=== PATIENT | male | born 2000 | race Asian ===

== ENCOUNTER 2024-06-17 21:14 | Inpatient (IN) ==
[2024-06-17 22:06] LABS: Appearance Urine Clear (Clear); Bacteria Urine Automated None Seen (None Seen); Bilirubin Urine Negative (Negative); Blood Urine Trace (Negative); Cast Urine Automated 0-2 /lpf (0-2); Color Urine Yellow; Epithelial Cell Urine Auto 0-2 /hpf (0-2); Glucose Urine UA Negative (Negative); Ketones Urine 1+ (Negative); Leukocyte Esterase Urine Negative (Negative); Nitrite Urine Negative (Negative); Protein Urine Trace (Negative); RBC Urine Automated 0-2 /hpf (0-2); Specific Gravity Urine 1.015 (1.000-1.030); Urobilinogen Urine Negative (Negative); WBC Urine Automated 0-5 /hpf (0-5); pH Urine 5.5 (4.5-7.5)
[2024-06-17 22:27] LABS: Basophils # (auto) 0.03 K/uL (0.00-0.20); Basophils % (auto) 0.2 %; Hematocrit (blood only) 39.5 % (42.0-52.0); Immature Granulocytes % (auto) 0.5 %; Lymphocytes # (auto) 1.38 K/uL (1.20-3.40); Lymphocytes % (auto) 7.5 %; Mean Corpuscular Hemoglobin 28.9 pg (25.0-34.0); Mean Corpuscular Hgb Conc 35.4 g/dL (32.0-36.0); Mean Corpuscular Volume 81.6 fL (80.0-100.0); Mean Platelet Volume 10.7 fL (9.4-12.4); Monocytes # (auto) 1.63 K/uL (0.11-0.59); Monocytes % (auto) 8.9 %; Neutrophils # (auto) 15.17 K/uL (1.40-6.50); Neutrophils % (auto) 82.9 %; Platelet Count 217 K/uL (130-400); RDW Coefficient of Variation 13.2 % (11.5-14.5); RDW Standard Deviation 39.1 fL (36.4-46.3); Red Blood Count 4.84 M/uL (4.70-6.10); White Blood Count 18.31 K/ul (4.8-10.8)
[2024-06-17 22:44] LABS: Albumin Globulin Ratio 1.6 (0.9-2); BUN Creatinine Ratio 11.6 (10-20); Bilirubin,Total 1.7 mg/dl (0.2-1.0); Calcium 9.7 mg/dl (8.6-10.3); Globulin 3.2 gm/dl (2.5-4.0); Total Protein 8.2 gm/dl (6.0-8.3)
[2024-06-17] MEDS: ONDANSETRON INJ 2 MG/ML 2 ML VIAL IV STA (22:45)
[2024-06-17] MEDS: ACETAMINOPHEN 1,000 MG/100 ML VIAL IV STA (22:45)
[2024-06-17] MEDS: KETOROLAC TROMETHAMINE 15 MG/ML VIAL IV ONE (22:45)
[2024-06-17] MEDS: SODIUM CHLORIDE 0.9% 1,000 ML IV ONE (22:46)
--- NOTE | 2024-06-17 22:48 | Emergency Department Note ---
Impression & Plan Appendicitis, Lower back pain, Leukocytosis ED Provider Note NAME: JEOVANY GILBERT AGE: 24 SEX: M : 2000 ARRIVES VIA: Walk-In INFORMANT: [Patient] ED PROVIDER(S): [Erik Gonzalez MD] CHIEF COMPLAINT: Abnormal laboratories HISTORY OF PRESENT ILLNESS: The patient is a 24-year-old male who states that he played squash 3 days ago and thought maybe he hurt his lower back. He was having a hard time sleeping because of the pain. In the last 24 hours, he has had increased pain, more so on the left, he vomited and even noticed some upper abdominal pain. The patient's upper abdominal pain has gone away but he still has some nausea and lower back pain. The patient went to [facility], they found some glucose and ketones in his urine and referred him to the ED. Patient believes he may have had a low-grade fever. No cough or respiratory complaints. He has no history of UTI, he has no history of diabetes. PMHx/PSHx/Social Hx: See Below PHYSICAL EXAM: GENERAL: Patient is in no acute distress. HEENT: No acute trauma, normocephalic atraumatic, mucous membranes moist, no nasal congestion. NECK: No stridor, no adenopathy, no meningismus, trachea is midline. LUNGS: Clear to auscultation bilaterally, no wheeze, no rhonchi, breath sounds equal. HEART: Without murmurs gallops or rubs, regular rate and rhythm. ABDOMEN: Soft, mildly tender in the lower abdomen bilaterally, no distention. No upper abdominal pain with palpation. EXTREMITIES: No cyanosis, full range of motion of all the joints without pain or difficulty. NEUROLOGIC: Oriented x 3, no acute motor or sensory deficits, no focal weakness. SKIN: No jaundice, no diaphoresis. DIFFERENTIAL DIAGNOSIS: Renal colic, pyelonephritis, diabetes, electrolyte imbalance, UTI, viral illness, musculoskeletal pain, among others. EMERGENCY DEPARTMENT PROCEDURES: MEDICAL DECISION MAKING: There is a moderate leukocytosis, this could be consistent with infection. There was a normal hemoglobin and platelet count. No renal failure or significant electrolyte abnormality. Bilirubin was somewhat elevated, the remaining liver enzymes were unremarkable. Urinalysis showed some ketones, no findings of infection. Chest x-ray did not show pneumonia or free air. Abdominal and pelvis CT shows appendicitis with a large appendicolith. No urinary obstruction. Patient received IV cefepime as antibiotic coverage. He was given 1 L of IV saline for hydration. He was given IV Zofran for nausea. He received IV Toradol for pain. He was given IV Tylenol for pain. Patient presents with primarily lower back pain. He had noted a fever and some vomiting. He did have some lower abdominal pain on exam but it was minimal. He was found to have appendicitis. I did speak with the patient and with case management. I did consult the on- call surgical team. Hospitalization is indicated Prior/Outside records/notes reviewed: None Imaging/x-ray results per my interpretation: Chest x-ray does not show free air or pneumonia. Chronic Medical/Social conditions affecting care: None Care/Management discussed with: General Surgery-Dr. Martha Yan. Level of care consideration(s): After review of the information above and other included data: --I believe the patient requires escalation of care to admission DISPOSITION: Admission Past Med/Surg History Problem List Encounter for pre-operative examination Leukocytosis (Acute) Lower back pain (Acute) Appendicitis (Acute) Medical History No significant medical problems Social History Smoking Status: Never smoker Hx Alcohol Use: No Hx Substance Use: No Preferred Language: [place] Citizen Communication Ability: Effective Spice Miller Required: No Beliefs That Will Affect Care: None Current Living Situation: Other Current Living Situation Comment: roommates x2 Feels Safe at Home: Yes Safety Concerns: Feels Safe At This Time Assistive Devices: None Allergies Allergies Allergy/AdvReac Type Severity Reaction Status Date / Time No Known Allergies Allergy Unverified 06/18/24 00:51 Home Meds Previous Rx's Medication Instructions Recorded amoxicillin 875 mg-potassium 1 tab PO Q12H 10 days #20 tabs 06/18/24 clavulanate 125 mg tablet oxycodone 5 mg tablet 5 - 10 mg (1 - 2 x 5 mg) PO 06/18/24 .[id number] PRN pain, for initial therapy, max 6 tabs per day #15 tabs Results & Data (ED) Vital Signs Vital Signs - 24 hr 06/17/24 21:21 06/17/24 21:53 06/17/24 23:39 Temperature 37.5 C Temperature Source Temporal Artery Scan Pulse Rate 112 H Pulse Rate [Finger] 89 Respiratory Rate 16 16 Respiratory Effort / Characteristics Non-Labored Non-Labored Respiratory Depth Normal Normal Blood Pressure 150/81 H Blood Pressure [Right Arm] 122/69 Blood Pressure Mean 104 Blood Pressure Mean [Right Arm] 86 Pulse Oximetry 99 100 Oxygen Delivery Method Room Air Room Air Sepsis Recent Fever Within 48 Hours No Sepsis New/Unexplained Change in Mental Status No Sepsis Action Taken by Nursing No Action Required Home Medications Current Medication List: was personally reviewed by me Laboratory Data Attestation: I reviewed the patient's lab results. 06/20/24 06:53 06/20/24 06:53 Lab Results 06/17/24 06/17/24 06/17/24 Range/Units 21:40 21:46 22:10 WBC 18.31 H (4.8-10.8) K/ul RBC 4.84 (4.70-6.10) M/uL Hgb 14.0 (14.0-18.0) g/dl Hct 39.5 L (42.0-52.0) % MCV 81.6 (80.0-100.0) fL MCH 28.9 (25.0-34.0) pg MCHC 35.4 (32.0-36.0) g/dL RDW Std Deviation 39.1 (36.4-46.3) fL RDW Coeff of Day 13.2 (11.5-14.5) % Plt Count 217 (130-400) K/uL MPV 10.7 (9.4-12.4) fL Immature Gran % (Auto) 0.5 % Neut % (Auto) 82.9 % Lymph % (Auto) 7.5 % [place] % (Auto) 8.9 % Eos % (Auto) 0.0 % Baso % (Auto) 0.2 % Neut # (Auto) 15.17 H (1.40-6.50) K/uL Lymph # (Auto) 1.38 (1.20-3.40) K/uL [place] # (Auto) 1.63 H (0.11-0.59) K/uL Eos # (Auto) 0.00 (0.00-0.50) K/uL Baso # (Auto) 0.03 (0.00-0.20) K/uL Immature Gran # (Auto) 0.10 (0.01-0.20) K/uL Sodium 135 L (136-145) mmol/L Potassium 4.0 (3.5-5.1) mmol/L Chloride 99 (98-107) mmol/L Carbon Dioxide 26 (21-32) mmol/L Anion Gap 10 (3-11) BUN 11 (6-23) mg/dl Creatinine 0.95 (0.6-1.4) mg/dl Est Cr Clr Drug Dosing 122.0 ml/min eGFR 116.06 BUN/Creatinine Ratio 11.6 (10-20) Glucose 123 H (70-99(Fasting)) mg/dl POC Glucose 129 H (70-99) mg/dl Calcium 9.7 (8.6-10.3) mg/dl Magnesium 1.7 (1.7-2.4) mg/dl Total Bilirubin 1.7 H (0.2-1.0) mg/dl AST 13 (13-39) U/L ALT 8 (7-52) U/L Alkaline Phosphatase 61 (34-104) U/L Total Protein 8.2 (6.0-8.3) gm/dl Albumin 5.0 (3.4-5.0) gm/dl Globulin 3.2 (2.5-4.0) gm/dl Albumin/Globulin Ratio 1.6 (0.9-2) Urine Color Yellow Urine Appearance Clear (Clear) Urine pH 5.5 (4.5-7.5) Ur Specific [place] 1.015 (1.000-1.030) Urine Protein Trace H (Negative) Urine Glucose (UA) Negative (Negative) Urine Ketones 1+ H (Negative) Urine Blood Trace H (Negative) Urine Nitrite Negative (Negative) Urine Bilirubin Negative (Negative) Urine Urobilinogen Negative (Negative) Ur Leukocyte Esterase Negative (Negative) Urine WBC (Auto) 0-5 (0-5) /hpf Urine RBC (Auto) 0-2 (0-2) /hpf U Hyaline Cast (Auto) 0-2 (0-2) /lpf U Epithel Cells (Auto) 0-2 (0-2) /hpf Urine Bacteria (Auto) None Seen (None Seen) Administered Medications Piperacillin Sod/Tazobactam Sod (Zosyn) 4.5 gm in 100 mls @ 25 mls/hr IV Q8H [facility]; Protocol Stop: 06/28/24 06:01 Last Admin: 06/20/24 14:33 Dose: 25 mls/hr Documented By: Infusion: 06/20/24 09:28 Dose: Infused Documented By: [facility] Admin: 06/20/24 05:28 Dose: 25 mls/hr Documented By: Infusion: 06/20/24 03:47 Dose: Infused Documented By: Admin: 06/19/24 23:04 Dose: 25 mls/hr Documented By: Infusion: 06/19/24 19:04 Dose: Infused Documented By: Admin: 06/19/24 14:59 Dose: 25 mls/hr Documented By: [facility] Infusion: 06/19/24 10:08 Dose: Infused Documented By: [facility] Admin: 06/19/24 06:08 Dose: 25 mls/hr Documented By: Infusion: 06/19/24 04:25 Dose: Infused Documented By: Admin: 06/18/24 22:35 Dose: 25 mls/hr Documented By: Infusion: 06/18/24 19:11 Dose: Infused Documented By: Admin: 06/18/24 14:56 Dose: 25 mls/hr Documented By: [facility] Infusion: 06/18/24 11:10 Dose: Infused Documented By: [facility] Admin: 06/18/24 06:53 Dose: 25 mls/hr Documented By: [facility] Acetaminophen (Ofirmev) 1,000 mg in 100 mls @ 400 mls/hr IV Q8H [facility] Stop: 06/21/24 07:29 Last Infusion: 06/20/24 15:52 Dose: Infused Documented By: [facility] Admin: 06/20/24 15:37 Dose: 400 mls/hr Documented By: Infusion: 06/20/24 08:21 Dose: Infused Documented By: [facility] Admin: 06/20/24 08:06 Dose: 400 mls/hr Documented By: [facility] Infusion: 06/19/24 23:21 Dose: Infused Documented By: Admin: 06/19/24 23:05 Dose: 400 mls/hr Documented By: Infusion: 06/19/24 17:21 Dose: Infused Documented By: Admin: 06/19/24 16:39 Dose: 400 mls/hr Documented By: Infusion: 06/19/24 10:05 Dose: Infused Documented By: Admin: 06/19/24 08:44 Dose: 400 mls/hr Documented By: Infusion: 06/18/24 22:55 Dose: Infused Documented By: Admin: 06/18/24 22:35 Dose: 400 mls/hr Documented By: Infusion: 06/18/24 16:38 Dose: Infused Documented By: Admin: 06/18/24 16:15 Dose: 400 mls/hr Documented By: Infusion: 06/18/24 08:24 Dose: Infused Documented By: Admin: 06/18/24 07:39 Dose: 400 mls/hr Documented By: JANUSZ Ondansetron HCl (Ondansetron Inj 2 Mg/Ml 2 Ml Vial) 4 mg IV Q6H PRN PRN Reason: Nausea And Vomiting Stop: 07/18/24 00:44 Last Admin: 06/19/24 23:22 Dose: 4 mg Documented By: Admin: 06/19/24 13:53 Dose: 4 mg Documented By: Admin: 06/18/24 13:52 Dose: 4 mg Documented By: JANUSZ Discontinued Medications Bupivacaine HCl (Bupivacaine 0.5 % 5 Mg/1 Ml Mpf 30ml Vial) Confirm Administered Dose 30 ml .ROUTE .STK-MED ONE Stop: 06/18/24 02:45 Last Admin: 06/18/24 04:46 Dose: 30 ml Documented By: [id number] Sodium Chloride (Nss) 1,000 mls @ 999 mls/hr IV .Q1H1M ONE Stop: 06/17/24 23:40 Last Infusion: 06/18/24 00:13 Dose: Infused Documented By: Admin: 06/17/24 22:46 Dose: 999 mls/hr Documented By: MARY Acetaminophen (Ofirmev) 1,000 mg in 100 mls @ 400 mls/hr IV NOW STA Stop: 06/17/24 22:54 Last Infusion: 06/17/24 23:00 Dose: Infused Documented By: Admin: 06/17/24 22:45 Dose: 400 mls/hr Documented By: MARY Cefepime HCl (Maxipime 2000mg) 2,000 mg in 20 mls @ 5 mls/min IV NOW STA; Protocol Stop: 06/18/24 00:22 Last Admin: 06/18/24 00:30 Dose: 5 mls/min Documented By: MARY Piperacillin Sod/Tazobactam Sod (Zosyn) 4.5 gm in 100 mls @ 200 mls/hr IV NOW ONE; Protocol Stop: 06/18/24 01:13 Last Infusion: 06/18/24 01:49 Dose: Infused Documented By: Admin: 06/18/24 01:06 Dose: 200 mls/hr Documented By: MARY Sodium Chloride (Nss) 1,000 mls @ 125 mls/hr IV .Q8H [facility] Stop: 06/19/24 00:44 Last Infusion: 06/19/24 06:29 Dose: Infused Documented By: [facility] Admin: 06/18/24 22:35 Dose: 125 mls/hr Documented By: [facility] Infusion: 06/18/24 22:35 Dose: Infused Documented By: [facility] Infusion: 06/18/24 15:41 Dose: 125 mls/hr Documented By: [facility] Admin: 06/18/24 15:01 Dose: 100 mls/hr Documented By: [facility] Infusion: 06/18/24 11:07 Dose: Infused Documented By: [facility] Admin: 06/18/24 01:07 Dose: 100 mls/hr Documented By: MARY Sodium Chloride (Nss) 500 mls @ 999 mls/hr IV .Q31M [facility] Stop: 06/18/24 15:45 Last Infusion: 06/18/24 16:39 Dose: Infused Documented By: [facility] Admin: 06/18/24 15:41 Dose: 999 mls/hr Documented By: [facility] Sodium Chloride (Nss) 1,000 mls @ 125 mls/hr IV .Q8H [facility] Stop: 06/19/24 13:58 Last Infusion: 06/19/24 15:54 Dose: Infused Documented By: [facility] Admin: 06/19/24 06:09 Dose: 125 mls/hr Documented By: ILEANA Potassium Chloride/Dextrose/Sod Cl (D5w And 1/2nss + 20meq Kcl) 20 meq in 1,000 mls @ 125 mls/hr IV .Q8H [facility] Stop: 06/20/24 14:14 Last Infusion: 06/20/24 15:46 Dose: Infused Documented By: [facility] Admin: 06/20/24 06:36 Dose: 125 mls/hr Documented By: Infusion: 06/20/24 06:36 Dose: Infused Documented By: Admin: 06/19/24 23:04 Dose: 125 mls/hr Documented By: Infusion: 06/19/24 23:03 Dose: Infused Documented By: Admin: 06/19/24 14:56 Dose: 125 mls/hr Documented By: ALLEY Promethazine HCl (Phenergan) 12.5 mg in 50.5 mls @ 202 mls/hr IV NOW STA Stop: 06/20/24 05:19 Last Infusion: 06/20/24 06:06 Dose: Infused Documented By: Admin: 06/20/24 05:28 Dose: 202 mls/hr Documented By: ILEANA Ioversol (Optiray 320 100ml) 100 ml IV ONCE ONE Stop: 06/17/24 23:13 Last Admin: 06/17/24 23:12 Dose: 93 ml Documented By: [facility]AR[facility] Ketorolac Tromethamine (Ketorolac Tromethamine 15 Mg/Ml Vial) 10 mg IV NOW ONE Stop: 06/17/24 22:41 Last Admin: 06/17/24 22:45 Dose: 10 mg Documented By: MARY Miscellaneous Information (Patient's Allergy Info Needs Entered) 1 each N/A NOW STA Stop: 06/17/24 21:22 Last Admin: 06/18/24 00:54 Dose: Not Given Documented By: MARY Ondansetron HCl (Ondansetron Inj 2 Mg/Ml 2 Ml Vial) 4 mg IV NOW STA Stop: 06/17/24 22:41 Last Admin: 06/17/24 22:45 Dose: 4 mg Documented By: MARY Imaging Data Radiologist's Impression: Abdomen/Pelvis CT 06/17/24 22:40 CR Exam(s): CT ABDOMEN + PELVIS With Contrast IV Amt: 93 ml optiray 320 EXAM: CT Abdomen and Pelvis With Intravenous Contrast CLINICAL HISTORY: vomiting, low back pain. TECHNIQUE: Axial computed tomography images of the abdomen and pelvis with intravenous contrast. CTDI is 11.15 mGy and DLP is 535.01 mGy-cm. Automated exposure control was utilized for the study. A dose lowering technique was utilized adhering to the principles of ALARA. CONTRAST: Patient received 93 ml optiray 320 of IV contrast COMPARISON: No relevant prior studies available. FINDINGS: Lung bases: Unremarkable. No mass. No consolidation. ABDOMEN: Liver: Unremarkable. No mass. Gallbladder and bile ducts: Unremarkable. No calcified stones. No ductal dilation. Pancreas: Unremarkable. No mass. No ductal dilation. Spleen: Unremarkable. No splenomegaly. Adrenals: Unremarkable. No mass. Kidneys and ureters: Unremarkable. No solid mass. No hydronephrosis. Stomach and bowel: No bowel obstruction. Nonspecific fluid-filled small bowel loops in the pelvis. No dilation. Mild stool burden. No mucosal thickening. PELVIS: Appendix: 11 x 16 mm appendicolith noted at the ostium of the appendix. The appendix extends posterior from the cecum along the right lateral pelvic wall and is abnormally fluid dilated measuring 17 mm with diffuse wall thickening and periappendiceal fat stranding. Bladder: Unremarkable. No mass. Reproductive: Unremarkable as visualized. ABDOMEN and PELVIS: Intraperitoneal space: Trace free fluid in the pelvis. No loculation. No free air. Bones/joints: No acute fracture. No dislocation. Soft tissues: Unremarkable. Vasculature: Unremarkable. No abdominal aortic aneurysm. Lymph nodes: Unremarkable. No enlarged lymph nodes. IMPRESSION: 1. 11 x 16 mm appendicolith noted at the ostium of the appendix. The appendix extends posterior from the cecum along the right lateral pelvic wall and is abnormally fluid dilated measuring 17 mm with diffuse wall thickening and periappendiceal fat stranding. Findings are consistent with acute appendicitis. 2. Trace free fluid in the pelvis. No loculation. This is presumed reactive from the adjacent appendicitis. 3. No bowel obstruction. Nonspecific fluid-filled small bowel loops in the pelvis. No dilation. Reactive enteritis suspected. Communications: Call Doctor Appendicitis Electronically signed by: Bahman Braga MD 06/18/24 00:15 AM Chest X-Ray 06/17/24 22:40 Exam(s): XR CXR 1 VIEW EXAM: XR Chest, 1 View CLINICAL HISTORY: abd pain. TECHNIQUE: Frontal view of the chest. COMPARISON: No relevant prior studies available. FINDINGS: Lungs: No focal consolidation. The pulmonary vasculature demonstrates no significant radiographic abnormality. Pleural space: Unremarkable. No pneumothorax. No large pleural effusion. Heart: Unremarkable. No cardiomegaly. Mediastinum: No significant abnormality identified. The trachea is midline. Bones/joints: Unremarkable. No acute fracture. IMPRESSION: No focal consolidation or acute cardiopulmonary process identified. Electronically signed by: Bahman Braga MD 06/18/24 00:19 AM Discharge Plan Visit Data Chief Complaint: Abnormal Labs/Diagnostic Testing Stated Complaint: ABN LAB RESULT ED Provider: Erik Gonzalez Discharge Problem: Appendicitis, Lower back pain, Leukocytosis Patient Disposition: Admitted As Inpatient Condition: Fair Discharge Instructions Interventions: ED Discharge Assessment Last Done: 06/18/24 02:33 Discharge Problem: Appendicitis Qualifiers: Appendicitis type: acute appendicitis Acute appendicitis type: with localized peritonitis Appendicitis gangrene presence: with gangrene Appendicitis perforation presence: with perforation Appendicitis abscess presence: with abscess Qualified Code(s): K35.33 - Acute appendicitis with perforation, localized peritonitis, and gangrene, with abscess Lower back pain Qualifiers: Chronicity: acute Back pain laterality: midline Sciatica presence: without sciatica Qualified Code(s): M54.50 - Low back pain, unspecified Leukocytosis Qualifiers: Leukocytosis type: unspecified Qualified Code(s): D72.829 - Elevated white blood cell count, unspecified
[2024-06-17 23:04] LABS: Magnesium 1.7 mg/dl (1.7-2.4)
[2024-06-17] MEDS: OPTIRAY 320 100ml IV ONE (23:12)
--- NOTE | 2024-06-18 00:16 | CT Scan Report ---
Exam(s): CT ABDOMEN + PELVIS With Contrast IV Amt: 93 ml optiray 320 EXAM: CT Abdomen and Pelvis With Intravenous Contrast CLINICAL HISTORY: vomiting, low back pain. TECHNIQUE: Axial computed tomography images of the abdomen and pelvis with intravenous contrast. CTDI is 11.15 mGy and DLP is 535.01 mGy-cm. Automated exposure control was utilized for the study. A dose lowering technique was utilized adhering to the principles of ALARA. CONTRAST: Patient received 93 ml optiray 320 of IV contrast COMPARISON: No relevant prior studies available. FINDINGS: Lung bases: Unremarkable. No mass. No consolidation. ABDOMEN: Liver: Unremarkable. No mass. Gallbladder and bile ducts: Unremarkable. No calcified stones. No ductal dilation. Pancreas: Unremarkable. No mass. No ductal dilation. Spleen: Unremarkable. No splenomegaly. Adrenals: Unremarkable. No mass. Kidneys and ureters: Unremarkable. No solid mass. No hydronephrosis. Stomach and bowel: No bowel obstruction. Nonspecific fluid-filled small bowel loops in the pelvis. No dilation. Mild stool burden. No mucosal thickening. PELVIS: Appendix: 11 x 16 mm appendicolith noted at the ostium of the appendix. The appendix extends posterior from the cecum along the right lateral pelvic wall and is abnormally fluid dilated measuring 17 mm with diffuse wall thickening and periappendiceal fat stranding. Bladder: Unremarkable. No mass. Reproductive: Unremarkable as visualized. ABDOMEN and PELVIS: Intraperitoneal space: Trace free fluid in the pelvis. No loculation. No free air. Bones/joints: No acute fracture. No dislocation. Soft tissues: Unremarkable. Vasculature: Unremarkable. No abdominal aortic aneurysm. Lymph nodes: Unremarkable. No enlarged lymph nodes. IMPRESSION: 1. 11 x 16 mm appendicolith noted at the ostium of the appendix. The appendix extends posterior from the cecum along the right lateral pelvic wall and is abnormally fluid dilated measuring 17 mm with diffuse wall thickening and periappendiceal fat stranding. Findings are consistent with acute appendicitis. 2. Trace free fluid in the pelvis. No loculation. This is presumed reactive from the adjacent appendicitis. 3. No bowel obstruction. Nonspecific fluid-filled small bowel loops in the pelvis. No dilation. Reactive enteritis suspected. Communications: Call Doctor Appendicitis Electronically signed by: Bahman Braga MD 06/18/24 00:15 AM
--- NOTE | 2024-06-18 00:20 | XRay Report ---
Exam(s): XR CXR 1 VIEW EXAM: XR Chest, 1 View CLINICAL HISTORY: abd pain. TECHNIQUE: Frontal view of the chest. COMPARISON: No relevant prior studies available. FINDINGS: Lungs: No focal consolidation. The pulmonary vasculature demonstrates no significant radiographic abnormality. Pleural space: Unremarkable. No pneumothorax. No large pleural effusion. Heart: Unremarkable. No cardiomegaly. Mediastinum: No significant abnormality identified. The trachea is midline. Bones/joints: Unremarkable. No acute fracture. IMPRESSION: No focal consolidation or acute cardiopulmonary process identified. Electronically signed by: Bahman Braga MD 06/18/24 00:19 AM
[2024-06-18] MEDS: CEFEPIME 2000MG 2,000 MG/20 ML SYR IV STA (00:30)
--- NOTE | 2024-06-18 00:44 | History & Physical Report ---
<Statement entered by Maurizio De Santiago DO - 06/18/24 03:10> I have seen and examined this patient. He has become tachycardic and febrile and will be taken to the OR emergently for laparoscopic exploration and appendectomy. The details of the procedure have been explained to him and consent has been obtained. Date of Service June 18, 2024 Assessment & Plan (1) Appendicitis: Plan: Into the patient's clinical presentation and findings on imaging and labs he will be admitted to the surgical service proceeding as follows: We will keep the patient n.p.o. We will hydrate him with IV fluids Patient has received antibiotics form of cefepime but I am going to switch this to Zosyn as we would like to add some anaerobic coverage will continue this antibiotic perioperatively Will provide analgesics Will provide antiemetics We will tentatively plan on having the patient undergo an appendectomy with Dr. Harris the morning of 06/18/2024 At the present time the patient is normotensive without tachycardia or fever and he is nontoxic-appearing. We use SCDs for DVT prevention, no chemical means due to planned surgery He will be a level 1 full code The above plan was formulated and discussed with my attending physician, Dr. Harris Addendum (2:15 AM) I was notified by nursing staff that patient initially was afebrile but at approximately 1:45 AM spiked a temperature to 103.1. I revisited the patient while he was still in the emergency department and he was noted to be febrile as previously stated. He was also noted to be tachycardic with heart rate in the 130s. Prior to patient spiking a temperature he did have some chills and rigors. On physical exam the patient's abdomen seems to be more tender particularly in the right lower quadrant. The patient did receive Tylenol at approximately 11:00 PM on 06/17/2024 and Toradol at approximately 10:45 PM on 06/17/2024. He has also received antibiotics in form of cefepime and Zosyn. He is currently receiving intravenous fluids. Due to the above-noted changes in clinical status I have notified my attending, Dr. Harris and we will plan with proceeding with appendectomy immediately. We are currently awaiting on arrival of our staff and we will proceed shortly thereafter. History of Present Illness Chief Complaint: Appendicitis Primary Care Provider: [facility] This is a 24-year-old male who presented to the emergency department secondary to lower back pain. The patient says that approximate 3 days ago he was playing squash and felt that though he hurt his lower back. He was having difficulty sleeping because of the pain and notes that it increased over the past 24 hours. Patient then relates that he developed some upper abdominal pain and had some nausea and vomiting. He also reports having a fever of 100.2 at home. He went to [facility] where patient was noted to have ketones and glucose in his urine and he was referred to the emergency department. Patient notes that he is otherwise healthy but did have a history of a hernia repair as a child. Since arrival to the emergency department he has had labs and imaging which I independent reviewed. A chest x-ray showed no evidence of pneumonia. A CT scan of the abdomen pelvis showed the patient had an acute appendicitis with a 17 mm appendix with diffuse wall thickening periappendiceal fat stranding. He also was noted to have an 11 x 16 mm appendicolith at the ostium of the appendix. There is trace free fluid noted in the pelvis without any loculations. Labs include a CBC with a white blood cell count was 18.3. His hemoglobin and hematocrit 14.0 39.5. Platelet count is normal. Chemistry profile showed sodium was 135 with a potassium of 4.0. BUN and creatinine are both normal. He did have an elevated total bilirubin of 1.7 but his LFTs were otherwise unre markable. Urinalysis was not indicative of infection. At the time of my interview he was resting comfortably in bed and he was in no distress. Concerning past medical history the patient denies any medical problems and notes he does not take any medications Concerning past surgical history patient notes that he has had a hernia repair as a child Concerning social history he does not smoke Concerning family history he does not know family history of premature coronary artery disease Allergies Allergy/AdvReac Type Severity Reaction Status Date / Time No Known Allergies Allergy Unverified 06/18/24 00:51 Past Med/Surg History Problem List (Updated 06/18/24 @ 01:10 by Erik Gonzalez MD) Leukocytosis (Acute) Lower back pain (Acute) Appendicitis (Acute) Medical History No significant medical problems Social History Smoking Status: Never smoker Preferred Language: Citizen Of [place] Feels Safe at Home: Yes Review of Systems Review of Systems: All systems reviewed & are unremarkable except as noted in HPI & below Physical Exam Constitutional: WD/WN, vitals as above Eyes: no conjunctival abnormality ENMT: Ears: no hearing impairment and no external ear abnormality Mouth: no oropharynx abnormality Respiratory: normal respiratory effort; no respiratory distress and no labored breathing Cardiovascular: Rate/Rhythm: regular rate and regular rhythm Gastrointestinal (Abdomen): Abdomen is soft and nonrigid. It is nondistended. There is no rebound tenderness or guarding the patient did have pain with palpation in the lower abdomen on both the right and left sides. Musculoskeletal: No calf tenderness Skin: no rashes Neurologic: moves all extremities Psychiatric: A+Ox3, euthymic affect Results & Data Results & Data Vital Signs (Past 12 Hours) Vital Signs Temp Pulse Pulse Resp BP BP Pulse Ox 06/17/24 23:39 89 16 122/69 100 06/17/24 21:21 37.5 C 112 H 16 150/81 H 99 O2 Del Method 06/17/24 23:39 Room Air 06/17/24 21:21 Room Air PG Care Time/CCT Total # of Minutes Spent Total Time Spent with Patient: Total time spent is greater than 50% in coordination of care (as documented) at patient's floor/unit and/or counseling patient: Coding Level of Care Code 05782 INT INP/OBS CARE 3/75MIN Diagnoses Appendicitis K37
[2024-06-18] MEDS ORDERED: MoRPHine SULFATE 4 MG/ML 1 ML CARP\\VIAL IV PRN ×2 (00:45→07:16)
[2024-06-18] MEDS ORDERED: ACETAMINOPHEN 1,000 MG/100 ML VIAL IV PRN (00:45)
[2024-06-18] MEDS: Patient's ALLERGY Info needs ENTERED STA (00:54)
[2024-06-18] MEDS: PIPERACILLIN/TAZOBACTAM 4.5 GM/100 ML BAG IV ONE (01:06)
[2024-06-18] MEDS: SODIUM CHLORIDE 0.9% 1,000 ML IV SCH ×2 (01:07→15:41)
[2024-06-18] MEDS ORDERED: DEXAMETHASONE SOD INJ 4 MG/ML VIAL ONE (02:21)
[2024-06-18] MEDS ORDERED: SUCCINYLCHOLINE 100MG/5ML SYR IV ONE (02:21)
[2024-06-18] MEDS ORDERED: ONDANSETRON INJ 2 MG/ML 2 ML VIAL ONE (02:21)
[2024-06-18] MEDS ORDERED: MIDAZOLAM HCL 1 MG/ML 2ML VIAL ONE (02:21)
[2024-06-18] MEDS ORDERED: ROCURONIUM BROMIDE 10 MG/ML 5 ML VIAL IV ONE (02:21)
[2024-06-18] MEDS ORDERED: PROPOFOL IV EMULSION 10 MG/ML 20 ML VIAL IV ONE (02:21)
[2024-06-18] MEDS ORDERED: fentaNYL citrate PF 100 MCG/2 ML VIAL ONE ×3 (02:22→04:13)
[2024-06-18] MEDS ORDERED: fentaNYL citrate PF 100 MCG/2 ML VIAL IV PRN (02:30)
[2024-06-18] MEDS ORDERED: ATROPINE SULFATE 0.1 MG/ML 10ML SYR IV PRN (02:30)
[2024-06-18] MEDS ORDERED: ONDANSETRON INJ 2 MG/ML 2 ML VIAL IV PRN (02:30)
[2024-06-18] MEDS ORDERED: ePHEDrine sulfate 50 MG/ML AMP IV PRN (02:30)
--- NOTE | 2024-06-18 02:30 | Anesthesiology Consultation ---
Date of Service June 18, 2024 Assessment & Plan (1) Encounter for pre-operative examination: Chart Review Chart Review: Patient NOT seen in Pre Admission Testing emergent Consults Requested none History Surgery Operation Date: 06/18/24 03:00 Proposed Procedures p Laparoscopic Appendectomy - Maurizio De Santiago DO Height/Weight Height: 5 ft 9 in Weight: 72.4 kg Allergies Allergy/AdvReac Type Severity Reaction Status Date / Time No Known Allergies Allergy Unverified 06/18/24 00:51 Medications Active Medications Generic Name Dose Route Start Last Admin Trade Name Freq PRN Reason Stop Dose Admin Sodium Chloride 1,000 mls @ 100 mls/hr 06/18/24 00:45 06/18/24 01:07 Nss IV 06/19/24 00:44 100 mls/hr .Q10H SANDRINE Administration Past Medical History Medical History No significant medical problems Social History Smoking Status: Never smoker Physical Exam Vital Signs Last Vital Signs Temp 103.1 F H 06/18/24 00:46 Pulse 120 H 06/18/24 02:03 Resp 22 06/18/24 02:15 BP 110/69 06/18/24 02:00 Pulse Ox 98 06/18/24 02:15 O2 Del Method Room Air 06/18/24 01:00 Testing Laboratory Results 06/17/24 22:10 06/17/24 22:10 Urine Color Yellow 06/17/24 21:40 Urine Appearance Clear (Clear) 06/17/24 21:40 Urine pH 5.5 (4.5-7.5) 06/17/24 21:40 Ur Specific Lincoln 1.015 (1.000-1.030) 06/17/24 21:40 Urine Protein Trace (Negative) H 06/17/24 21:40 Urine Glucose (UA) Negative (Negative) 06/17/24 21:40 Urine Ketones 1+ (Negative) H 06/17/24 21:40 Urine Nitrite Negative (Negative) 06/17/24 21:40 Ur Leukocyte Esterase Negative (Negative) 06/17/24 21:40 Urine WBC (Auto) 0-5 /hpf (0-5) 06/17/24 21:40 Urine RBC (Auto) 0-2 /hpf (0-2) 06/17/24 21:40 U Hyaline Cast (Auto) 0-2 /lpf (0-2) 06/17/24 21:40 U Epithel Cells (Auto) 0-2 /hpf (0-2) 06/17/24 21:40 Urine Bacteria (Auto) None Seen (None Seen) 06/17/24 21:40 06/17/24 21:46 POC Glucose 129 H
[2024-06-18] MEDS ORDERED: VASOPRESSIN 20 UNIT/ML VIAL ONE (03:25)
[2024-06-18] MEDS ORDERED: SUGAMMADEX SODIUM 200 MG/2 ML VIAL IV ONE (04:19)
[2024-06-18] MEDS: BUPIVACAINE 0.5 % 5 MG/1 ML MPF 30ML VIAL ONE (04:46)
--- NOTE | 2024-06-18 04:59 | Operative Report ---
PG Post Operative Report Pre & Post Diagnosis Operation Date: 06/18/24 03:00 Pre-Op Diagnosis: Appendicitis Post-Op Diagnosis: Appendicitis I identified the patient and participated in the time-out.: Yes Procedure Operation Date: 06/18/24 03:00 Actual Procedures p Laparoscopic Appendectomy - Maurizio De Santiago DO Surgeon Maurizio De Santiago DO Barber Instructor COLBY Tom Estimated Blood Loss 15 Findings See Below Acute, perforated and gangrenous appendicitis with abscess Specimens Appendix Drains 19 Mongolian DOMINIC Anesthesia Type General Complications None Indications 24-year-old male presented to the ED with physical exam and CT evidence for acute appendicitis. The appendix was extremely large measuring at least [address] and containing fecaliths 1 fecalith and particular was very large. The patient became septic. Description of Procedure The patient was brought back to the operating room placed on the operating room table in supine position. He was connected to cardiac and oxygen monitoring, supplemental O2 was provided and SCDs were applied to bilateral lower extremities. The patient was administered general anesthesia and a secure airway was established. A Alves catheter was inserted. The abdomen was prepped and draped in typical sterile fashion and a timeout was conducted. Local anesthetic was used anesthetize the skin prior to making all incisions and all incisions were made with an 11 blade. Intra-abdominal access was gained in the infraumbilical fold using a Veress needle. This access was confirmed using the saline drop test. CO2 insufflation was initiated and pneumoperitoneum was established to a goal pressure 15 mmHg. Once this goal pressure was reached, 5 mm port was inserted using a 5 mm laparoscope and Optiview obturator for direct visualization. An additional 12 mm trocar was inserted the left lower quadrant and as well as a 5 mm port at the suprapubic midline both under direct visualization. The cecum was noted mildly distended and thick purulent fluid was identified in the pelvis. This was suctioned away and captured for culture. The OR table was then positioned in Trendelenburg and left side down to help mobilize the distended and floppy cecum. Eventually a very broad-based and thickened appendix was identified. As the appendix was further mobilized, gangrene, perforation and an abscess were unroofed. Stool that was expressed through the perforation was removed using a grasper and suction merchandising coordinator. The appendix was taken at its origin from the cecal base using a 60 mm purple loaded Endo CARMEN stapler. A LigaSure was used to take the mesoappendix and appendiceal artery. Excess discharge anjel were removed with the suction. The appendix was placed in an Endo Catch bag and removed from the abdomen. This specimen was placed in a label container sent to pathology for further analysis. The surgical area was copiously irrigated including the pelvis and right upper quadrants using a total of 3 L of saline. There was no bleeding. Using a separate stab incision, a 19 Mongolian Piyush drain was inserted at the right lower quadrant extending from the right lower quadrant to the pelvis. The OR table was returned to the neutral position. The pelvis, right lower quadrant and right upper quadrant were again inspected for mobilize fluid which was identified and suctioned away. Omentum was placed over the surgical site. The instruments were removed, CO2 insufflation was discontinued, excess pneumoperitoneum was evacuated and trocars were removed. The right lower quadrant drain was secured using 3-0 nylon suture. The fascia at the left lower quadrant incision was closed using 0 Vicryl suture. The 3 skin incisions were closed using 4-0 Vicryl suture. The abdomen was wiped clean with a saline soaked lap pad and dried. The 3 skin incisions were further sealed with Dermabond. The Alves catheter was removed. The patient was awakened from anesthesia and a secure airway was removed. He tolerated the procedure well and is transferred to recovery in stable condition. I attest to the content of the Intraoperative Record and any orders documented therein. Any exceptions are noted below.
--- NOTE | 2024-06-18 06:27 | Anesthesiology Progress Note ---
Date of Service June 18, 2024 Anesthesia Post Procedure Vital Signs Vital Signs: Temp Pulse Pulse Resp BP BP Pulse Ox 06/18/24 05:25 98.1 F 114 H 21 98/52 L 97 06/18/24 05:15 98.1 F 113 H 20 104/59 L 97 06/18/24 05:05 98.1 F 122 H 20 124/20 L 95 06/18/24 02:33 139 H 16 103/65 97 06/18/24 02:15 22 98 06/18/24 02:03 120 H 26 H 99 06/18/24 02:00 110/69 06/18/24 02:00 110/69 06/18/24 01:00 95 H 16 138/96 98 06/18/24 00:46 103.1 F H 120 H 18 136/82 98 06/17/24 23:39 89 16 122/69 100 06/17/24 21:21 99.5 F 112 H 16 150/81 H 99 O2 Del Method O2 Flow Rate 06/18/24 05:25 Room Air 06/18/24 05:15 Room Air 06/18/24 05:05 Nasal Cannula, Other 4 06/18/24 02:33 Room Air 06/18/24 02:15 06/18/24 02:03 06/18/24 02:00 06/18/24 02:00 06/18/24 01:00 Room Air 06/18/24 00:46 06/17/24 23:39 Room Air 06/17/24 21:21 Room Air Transfer of Care Handoff Completed per policy Notes Mental Status: alert / awake / arousable and participated in evaluation Patient Amnestic to Procedure: Yes Nausea / Vomiting: adequately controlled Pain: adequately controlled Airway Patency, RR, SpO2: stable & adequate BP & HR: stable & adequate Hydration State: stable & adequate Anesthetic Complications: no major complications apparent and Pt Satisfied with anesthetic care
[2024-06-18] MEDS: PIPERACILLIN/TAZOBACTAM 4.5 GM/100 ML BAG IV SCH (06:53)
[2024-06-18] MEDS ORDERED: MoRPHine SULFATE 2 MG/ML CARP IV PRN (07:16)
[2024-06-18] MEDS: ACETAMINOPHEN 1,000 MG/100 ML VIAL IV SCH (07:39)
[2024-06-18] MEDS: ONDANSETRON INJ 2 MG/ML 2 ML VIAL IV PRN (13:52)
[2024-06-18] MEDS ORDERED: SODIUM CHLORIDE 0.9% 500 ML IV ONE (15:05)
[2024-06-19] MEDS: SODIUM CHLORIDE 0.9% 1,000 ML IV ONE (06:09)
[2024-06-19 06:40] LABS: BUN Creatinine Ratio 18.3 (10-20); Calcium 8.5 mg/dl (8.6-10.3); Creatinine Clr Calc Pharmacy 124.6 ml/min; Potassium 4.1 mmol/L (3.5-5.1)
[2024-06-19 06:55] LABS: Hemoglobin 10.9 g/dl (14.0-18.0); Mean Corpuscular Hemoglobin 28.7 pg (25.0-34.0); Mean Corpuscular Hgb Conc 34.1 g/dL (32.0-36.0); Mean Corpuscular Volume 84.2 fL (80.0-100.0); Mean Platelet Volume 10.7 fL (9.4-12.4); Platelet Count 188 K/uL (130-400); RDW Coefficient of Variation 13.9 % (11.5-14.5); RDW Standard Deviation 43.1 fL (36.4-46.3); White Blood Count 13.81 K/ul (4.8-10.8)
[2024-06-19 07:13] LABS: Basophils # (auto) 0.03 K/uL (0.00-0.20); Basophils % (auto) 0.2 %; Immature Granulocytes # (auto) 0.19 K/uL (0.01-0.20); Immature Granulocytes % (auto) 1.4 %; Lymphocytes # (auto) 0.83 K/uL (1.20-3.40); Monocytes # (auto) 1.13 K/uL (0.11-0.59); Monocytes % (auto) 8.2 %; Neutrophils # (auto) 11.63 K/uL (1.40-6.50); Neutrophils % (auto) 84.2 %
--- NOTE | 2024-06-19 10:53 | Surgery Progress Note ---
Date of Service June 19, 2024 Assessment & Plan (1) Appendicitis: Plan: with gangrene, perforation and abscess formation Plan 24M presented with acute appendicitis with onset of sepsis. POD 1 s/p laparoscopic appendectomy for feculent perforated appendix with abscess, abdominal washout and drain placement. Febrile last night to 37.7 at 1900, HD stable. Leukocytosis is improving today down to 13.8 from 18.3. Will initiate clear liquids for lunch today Continue to ambulate Continue to record DOMINIC drain output daily Continue IV abx F/U am labs Admission and Anticipated Discharge Date Admission Date: June 18, 2024 Subjective Pt states he feels ok. Denies N/V and is passing flatus. No BM. Ambulates and is voiding. Pain at incisions Physical Exam Constitutional: healthy appearing; not ill appearing, not in distress and not diaphoretic Respiratory: normal respiratory effort; no respiratory distress, no labored breathing and does not use accessory muscles Gastrointestinal (Abdomen): Inspection/Auscultation: abdomen normal to inspection; abdomen not distended laparoscopic incisions intact with skin glue DOMINIC drain in place with scant serosanguinous drainage Results & Data Vital Signs (Past 12 Hours) Vital Signs Temp Pulse Resp BP Pulse Ox O2 Del Method 06/19/24 07:27 36.9 C 84 16 100/61 100 Room Air 06/19/24 03:57 37 C 82 18 100/85 96 Room Air 06/18/24 23:30 37.1 C 85 16 104/62 96 Room Air PG Care Time/CCT Total # of Minutes Spent Total Time Spent with Patient: Total time spent is greater than 50% in coordination of care (as documented) at patient's floor/unit and/or counseling patient: Coding Level of Care Code 60538 Post Operative Follow-Up Diagnoses Acute appendicitis with perforation, localized peritonitis, abscess, and gangrene K35.33 Acute appendicitis type: with localized peritonitis Appendicitis abscess presence: with abscess Appendicitis gangrene presence: with gangrene Appendicitis perforation presence: with perforation Appendicitis type: acute appendicitis (1) Appendicitis Acute appendicitis type: with localized peritonitis Appendicitis abscess presence: with abscess Appendicitis gangrene presence: with gangrene Appendicitis perforation presence: with perforation Appendicitis type: acute appendicitis Qualified Code(s): K35.33 - Acute appendicitis with perforation, localized peritonitis, and gangrene, with abscess
[2024-06-19] MEDS: D5W AND 1/2NSS + 20MEQ KCL 20 MEQ/1,000 ML BAG IV SCH (14:56)
[2024-06-20] MEDS: PROMETHAZINE 12.5 MG/50.5 ML BAG IV STA (05:28)
[2024-06-20 07:18] LABS: Hematocrit (blood only) 32.2 % (42.0-52.0); Mean Corpuscular Hemoglobin 28.6 pg (25.0-34.0); Mean Corpuscular Hgb Conc 34.2 g/dL (32.0-36.0); Mean Corpuscular Volume 83.9 fL (80.0-100.0); Mean Platelet Volume 10.4 fL (9.4-12.4); Platelet Count 191 K/uL (130-400); RDW Coefficient of Variation 14.2 % (11.5-14.5); RDW Standard Deviation 43.5 fL (36.4-46.3); Red Blood Count 3.84 M/uL (4.70-6.10); White Blood Count 12.24 K/ul (4.8-10.8)
[2024-06-20 07:35] LABS: BUN Creatinine Ratio 18.1 (10-20); Calcium 8.6 mg/dl (8.6-10.3); Creatinine Clr Calc Pharmacy 160.9 ml/min; Potassium 4.2 mmol/L (3.5-5.1)
[2024-06-20 07:55] LABS: Basophils # (auto) 0.02 K/uL (0.00-0.20); Basophils % (auto) 0.2 %; Eosinophils # (auto) 0.09 K/uL (0.00-0.50); Eosinophils % (auto) 0.7 %; Immature Granulocytes # (auto) 0.08 K/uL (0.01-0.20); Immature Granulocytes % (auto) 0.7 %; Lymphocytes # (auto) 0.98 K/uL (1.20-3.40); Monocytes # (auto) 0.78 K/uL (0.11-0.59); Monocytes % (auto) 6.4 %; Neutrophils # (auto) 10.29 K/uL (1.40-6.50)
--- NOTE | 2024-06-20 11:00 | Surgery Progress Note ---
Date of Service June 20, 2024 Assessment & Plan (1) Appendicitis: Plan: with gangrene, perforation and abscess formation Plan 24M presented with acute appendicitis with onset of sepsis. POD 3 s/p laparoscopic appendectomy for feculent perforated appendix with abscess, abdominal washout and drain placement. Final pathology confirmed acute gangrenous appendicitis. Afebrile o/n, HD stable. Leukocytosis continues to improve now down to 12.2 from 13.8. Will re-initiate clear liquids for lunch today and advance diet as tolerated Continue to ambulate Continue to record DOMINIC drain output daily Continue IV abx F/U am labs Will likely be ready to d/c tomorrow or Sunday pending labs and diet toleration D/C on oral abx for a total of 7 days, may use Augmentin F/U with me in the office in 1-[address] Glass will be rounding for surgery over the weekend Admission and Anticipated Discharge Date Admission Date: June 18, 2024 Subjective pt seen and examined this am without complaints. Did have an episode of vomiting o/n denies nausea this am an feels he could try clear liquids again. He continues to pass flatus and has had BMs. Physical Exam Gastrointestinal (Abdomen): Laparoscopic incisions intact DOMINIC drain with serosanguinous drainage Results & Data Vital Signs (Past 12 Hours) Vital Signs Temp Pulse Pulse Resp BP Pulse Ox O2 Del Method 06/20/24 07:46 37.0 C 63 14 107/66 99 Room Air 06/20/24 05:05 36.7 C 68 16 110/66 100 Room Air Laboratory Results WBC 12.24 PG Care Time/CCT Total # of Minutes Spent Total Time Spent with Patient: Total time spent is greater than 50% in coordination of care (as documented) at patient's floor/unit and/or counseling patient: Coding Level of Care Code 56962 Post Operative Follow-Up Diagnoses Acute appendicitis with perforation, localized peritonitis, abscess, and gangrene K35.33 Acute appendicitis type: with localized peritonitis Appendicitis abscess presence: with abscess Appendicitis gangrene presence: with gangrene Appendicitis perforation presence: with perforation Appendicitis type: acute appendicitis (1) Appendicitis Acute appendicitis type: with localized peritonitis Appendicitis abscess presence: with abscess Appendicitis gangrene presence: with gangrene Appendicitis perforation presence: with perforation Appendicitis type: acute appendicitis Qualified Code(s): K35.33 - Acute appendicitis with perforation, localized peritonitis, and gangrene, with abscess
[2024-06-20 14:12] VITALS: O2SAT 100
[2024-06-20 19:21] VITALS: TEMP 98.6
[2024-06-21 06:52] LABS: Basophils # (auto) 0.03 K/uL (0.00-0.20); Basophils % (auto) 0.3 %; Eosinophils % (auto) 2.1 %; Hematocrit (blood only) 33.1 % (42.0-52.0); Hemoglobin 11.3 g/dl (14.0-18.0); Immature Granulocytes # (auto) 0.04 K/uL (0.01-0.20); Immature Granulocytes % (auto) 0.4 %; Lymphocytes # (auto) 1.48 K/uL (1.20-3.40); Lymphocytes % (auto) 15.3 %; Mean Corpuscular Hemoglobin 28.3 pg (25.0-34.0); Mean Corpuscular Hgb Conc 34.1 g/dL (32.0-36.0); Mean Platelet Volume 10.3 fL (9.4-12.4); Monocytes % (auto) 7.2 %; Neutrophils # (auto) 7.23 K/uL (1.40-6.50); Neutrophils % (auto) 74.7 %; Platelet Count 216 K/uL (130-400); RDW Coefficient of Variation 13.9 % (11.5-14.5); RDW Standard Deviation 42.5 fL (36.4-46.3); Red Blood Count 3.99 M/uL (4.70-6.10); White Blood Count 9.68 K/ul (4.8-10.8)
[2024-06-21 06:59] VITALS: RESP 15
[2024-06-21 07:20] LABS: BUN Creatinine Ratio 15.8 (10-20); Calcium 8.9 mg/dl (8.6-10.3); Creatinine Clr Calc Pharmacy 152.5 ml/min; Potassium 4.1 mmol/L (3.5-5.1)
--- NOTE | 2024-06-21 09:21 | Surgery Progress Note ---
Date of Service June 21, 2024 Assessment & Plan (1) Appendicitis: Plan: with gangrene, perforation and abscess formation Plan 24M presented with acute appendicitis with onset of sepsis. POD 3 s/p laparoscopic appendectomy for feculent perforated appendix with abscess, abdominal washout and drain placement. Advance diet to regular Continue to ambulate Continue to record DOMINIC drain output daily discharge to home today in the afternoon Admission and Anticipated Discharge Date Admission Date: June 18, 2024 Subjective pt seen and examined this am without complaints. He is tolerating a full liquid diet. He continues to pass flatus and has had BMs. Physical Exam Gastrointestinal (Abdomen): Inspection/Auscultation: abdomen normal to inspection; abdomen not distended Results & Data Vital Signs (Past 12 Hours) Vital Signs Temp Pulse Resp BP Pulse Ox O2 Del Method 06/21/24 06:57 37.0 C 55 L 15 126/84 100 Room Air 06/20/24 23:16 Room Air (1) Appendicitis Acute appendicitis type: with localized peritonitis Appendicitis abscess presence: with abscess Appendicitis gangrene presence: with gangrene Appendicitis perforation presence: with perforation Appendicitis type: acute appendicitis Qualified Code(s): K35.33 - Acute appendicitis with perforation, localized peritonitis, and gangrene, with abscess
[2024-06-21 10:29] VITALS: BP 98/52; PULSE 68
== END 2024-06-21 14:30 | disposition home or self-care (01) | DRG 853 ==
LOC: EDBD → ED 21:14 → OR 06-18 02:40 → 3E 06-18 02:41